=== PATIENT | male | born 1995 | race Hispanic/Latino ===

== ENCOUNTER 2023-08-01 10:15 | Outpatient (CLI) | payer OTHER | END 2023-08-01 10:16 | disposition home or self-care (01) | LOC: CSHRAD 10:15 | PROVIDERS: ATTEND Physician Assistant Surgical | DX: S12.600D Unspecified displaced fracture of seventh cervical vertebra, subsequent encounter for fracture with routine healing (principal); S12.500D Unspecified displaced fracture of sixth cervical vertebra, subsequent encounter for fracture with routine healing | CPT/HCPCS: 72040 ==